=== PATIENT | male | born 1975 | race Caucasian/White ===

== ENCOUNTER 2020-06-16 05:06 | Emergency (ER) | payer BC, OTHER ==
[2020-06-16] MEDS ORDERED: Tetracaine HCl/PF 0.5% 4 ML Bottle EYERT ONE (05:10)
[2020-06-16] MEDS ORDERED: Fluorescein 1 MG Ophth Strip EYERT ONE (05:10)
--- NOTE | 2020-06-16 05:27 | EDM.PDOC ---
ED HPI GENERAL MEDICAL PROBLEM - General Stated Complaint: PT SAYS SOMETHING IN RIGH EYE OR CORNIAL ABRASION Time Seen by Provider: 06/16/20 05:15 Source of Information: Reports: Patient - History of Present Illness INITIAL COMMENTS - FREE TEXT/NARRATIVE: Sensation something in right eye night, intermittent yesterday. More swollen this am. No change in vision. ED ROS GENERAL - Review of Systems Review Of Systems: Comprehensive ROS is negative, except as noted in HPI. ED EXAM GENERAL W FULL EYE - Physical Exam Exam: See Below Exam Limited By: No Limitations General Appearance: Alert, Mild Distress Eye Exam: Right Eye: Conjunctival Injection, Bilateral Eye: EOMI, PERRL Eyelids: Right: Edema, Erythema, Lid Everted for Exam, Left: Normal Appearance Conjunctiva & Sclera: Right: Injected, Left: Normal Appearance Cornea Exam: Right: Examined with Flourescein, Bilateral: Normal Appearance Pupils: Normal Accommodation Pupillary Size: Bilateral: 4 mm Pupillary Reaction: Bilateral: Brisk Ears: Normal External Exam, Hearing Grossly Normal Throat/Mouth: Normal Inspection, Normal Voice Neck: Normal Inspection Respiratory/Chest: No Respiratory Distress, Normal Breath Sounds Cardiovascular: Regular Rate, Rhythm Neurological: Alert, Oriented Psychiatric: Normal Affect Skin Exam: Warm, Dry Course - Orders/Labs/Meds Meds: Medications Discontinued Medications Generic Name Dose Route Start Last Admin Trade Name Manju PRN Reason Stop Dose Admin Fluorescein Sodium 1 mg 06/16/20 05:10 Ful-Sonal EYERT 06/16/20 05:11 ONETIME ONE Tetracaine HCl 1 ml 06/16/20 05:10 Tetracaine 0.5% Steri-Unit Cammie EYERT 06/16/20 05:11 ASDIRECTED ONE Departure - Departure Time of Disposition: 05:37 Disposition: Home, Self-Care 01 Condition: Good Clinical Impression: Blepharitis of both upper and lower eyelid of right eye Qualifiers: Blepharitis type: unspecified type Qualified Code(s): H01.00A - Unspecified blepharitis right eye, upper and lower eyelids Conjunctivitis Qualifiers: Conjunctivitis type: unspecified Laterality: right Qualified Code(s): H10.9 - Unspecified conjunctivitis - Discharge Information *PRESCRIPTION DRUG MONITORING PROGRAM REVIEWED*: No *COPY OF PRESCRIPTION DRUG MONITORING REPORT IN PATIENT EVELINE: No Instructions: Blepharitis, [id number] Additional Instructions: ciprofloxacin eye drop 2 to right eye every 4 hours x 2 days then 4 times daily for 5 days follow up if increased redness pain ,change or change in vision dark glasses cool pack to right eye [facility] clinic Thursday for recheck
[2020-06-16] MEDS ORDERED: Ciprofloxacin 0.3% Ophth Soln 5 ML Bottle ONE (05:43)
== END 2020-06-16 05:51 | disposition home or self-care (01) ==
LOC: DL.ED 05:06
DX: H01.00A Unspecified blepharitis right eye, upper and lower eyelids (principal); H10.9 Unspecified conjunctivitis
CPT/HCPCS: 99283; A9270